=== PATIENT | female | born 1990 ===

== ENCOUNTER 2019-10-15 01:25 | Inpatient (IN) | payer SELFPAY ==
[2019-10-15] MEDS ORDERED: METHYLERGONOVINE 0.2MG/ML AMP IM PRN (04:10)
[2019-10-15] MEDS ORDERED: BUTORPHANOL 1 MG/ML INJ IV PRN (04:10)
[2019-10-15] MEDS ORDERED: Ringers Lactate 1,000 ML IV PRN (04:10)
[2019-10-15] MEDS ORDERED: CARBOPROST TROME 250 MCG/ML IM PRN (04:10)
[2019-10-15] MEDS ORDERED: PROMETHAZINE INJ 25 MG/ML AMP IM PRN (04:10)
[2019-10-15 04:42] LABS: Absolute Lymphocytes (CBC) 2.6 K/uL (0.7-4.9); Basophils % 0.1 % (0-1.3); Hematocrit 35.9 % (36.0-45.0); MPV 9.4 fL (7.6-11.3); RBC Red Blood Cell Count 4.13 M/uL (3.86-4.86)
[2019-10-15 04:43] LABS: Urine Appearance CLOUDY; Urine Bilirubin NEGATIVE (NEG); Urine Blood NEGATIVE (NEG); Urine Color YELLOW; Urine Glucose NEGATIVE (NEG); Urine Protein NEGATIVE (NEG); Urine Urobilinogen 0.2 mg/dL (0.2-1.0)
[2019-10-15] MEDS ORDERED: Ringers Lactate 1,000 ML IV SCH (05:00)
[2019-10-15] MEDS ORDERED: OXYTOCIN/LR 20 UNIT/1,000 ML BAG IV SCH ×2 (05:00→13:00)
[2019-10-15 05:03] LABS: Urine Microscopic Reflex ORDER UMIC
[2019-10-15 05:13] VITALS: BMI 27.8
[2019-10-15 05:50] LABS: Urine Bacteria 20-50 /HPF (<20); Urine Culture Reflex Order REFLEXED; Urine RBC NONE SEEN /HPF (NONE SEEN); Urine Urothelial Cells <5 /HPF (NONE SEEN)
[2019-10-15] MEDS ORDERED: ROPIVACAINE HCL 100 ML IV PRN (08:36)
[2019-10-15] MEDS ORDERED: FENTANYL CITR 100 MCG/2 ML IV ONE (08:36)
[2019-10-15] MEDS ORDERED: ROPIVACAINE HCL 0.2% 20ML AMP IV ONE (08:36)
[2019-10-15] MEDS ORDERED: LIDOCAINE 1% MPF 30 ML VIAL ONE (09:14)
--- NOTE | 2019-10-15 09:58 | PREOPHP ---
Date of Admission: 10/15/2019 A 28-year-old, 4, para 3, 39 weeks 1 day, followed antepartum without complications. Rh posi tive. Immune to rubella. Negative beta strep screen. Ancelmo regularly. Baby looks good on th e monitor. Good variability. She is 3.5 cm, -1 station. Rupture of membranes, clear fluid. Labor talk given. The patient will probably be requesting epidural when she achieves 4 cm and the baby is lower. We will call Anesthesia at that point. Labor talk given. Anticipate delivery sometime later today. FRANCIS/TELMA Voice ID: [id number]
[2019-10-15] MEDS ORDERED: ACETAMINOPHEN 500 MG TAB PO PRN (12:32)
[2019-10-15] MEDS ORDERED: Oxycodone HCl/Acetaminophen 1 TAB TAB PO PRN ×2 (12:32)
[2019-10-15] MEDS ORDERED: DOCUSATE NA/SENNA CONC 1 TAB PO PRN (12:32)
[2019-10-15] MEDS ORDERED: DIPHENHYDRAMINE 25 MG TAB/CAP PO PRN (12:32)
[2019-10-15] MEDS ORDERED: BISACODYL 10 MG RECTAL SUPP PR PRN (12:32)
[2019-10-15] MEDS ORDERED: miSOPROStoL 100 MCG TAB PO ONE (12:45)
[2019-10-15] MEDS: METHYLERGONOVINE 0.2 MG TAB PO PRN ×3 (13:39→21:45)
[2019-10-15] MEDS: IBUPROFEN 200 MG TAB PO PRN (21:45)
--- NOTE | 2019-10-15 23:46 | OP ---
Surgeon: Gilberto Rainey MD This is a 28-year-old, 4, para 3, at 39 weeks 1 day, 2.5 to 3 cm on admission. Rupture of me mbranes, clear fluid. The patient went into an active labor pattern, requested to receive epidural a nesthesia. Second stage of approximately 10 to 15 minutes. Spontaneous vaginal delivery of a 6 poun ds, 11 ounce male . Loose nuchal or more like shoulder harness cord. Apgars 9 and 9. No epis iotomy. No laceration. Schultze delivery of the placenta, which was inspected and noted to be intac t and normal. Mild uterine hypertonus. 350-400 cc blood loss. 0.2 mg of Methergine IM. The patien t tolerated all procedures well. She is Rh positive, immune to Rubella. Negative beta strep screen. Final Diagnoses: Term intrauterine 39 weeks 1 day, labor induction, vaginal delivery, epid ural anesthesia, mild uterine hypertonus. RUFINAC/MODL Voice ID: [id number] Report ID: [id number]
[2019-10-16] MEDS: METHYLERGONOVINE 0.2 MG TAB PO PRN (01:45)
[2019-10-16 01:52] LABS: RPR (Rapid Plasma Reagin) NON-REACT (NON-REACT)
[2019-10-16] MEDS: IBUPROFEN 200 MG TAB PO PRN ×2 (04:20→14:00)
--- NOTE | 2019-10-16 07:57 | DS ---
A 28-year-old female, 4, para 3, followed antepartum without complications, 39 weeks 1 day at the time of delivery. Delivered a 6 pounds 11 ounces male infant, Apgars 9 and 9. Epidural anesthe camilo. No episiotomy. No lacerations worthy of suturing. Schultze delivery of the placenta, which wa s inspected and noted to be intact and normal. Mild uterine hypotonus, 0.2 mg of Methergine as well as IV drip Pitocin, massage, and 100 mcg of Cytotec. Estimated blood loss at time of delivery, appro ximately 400 cc. ; afebrile, ambulating and voiding. Lochia is normal. No post epidural problems. Will be dismissed after baby is evaluated by dictaphone transcriber. No complaints or problems. Wi ll see me in 6 weeks for followup. Final Diagnoses: Term intrauterine , 39 weeks 1 day, vaginal delivery, epidural anesthesia. Mild uterine hypotonus. Loose nuchal cord. FRANCIS/ANIKETL Voice ID: [id number] Report ID: [id number]
[2019-10-16] MEDS ORDERED: IBUPROFEN 600 MG TAB ONE (14:01)
[2019-10-16 14:14] VITALS: BP 106/59; TEMP 97.3
[2019-10-18 04:20] LABS: HBsAG Nonreactive (Nonreactive)
== END 2019-10-16 15:35 | disposition home or self-care (01) | DRG 807 ==
LOC: 2ND-WC 04:03
PROVIDERS: ADMIT Specialist; ATTEND Specialist
PROC: 10E0XZZ Delivery of Products of Conception, External Approach (ICD-10-PCS; principal; 2019-10-15)
PROC: 10907ZC Drainage of Amniotic Fluid, Therapeutic from Products of Conception, Via Natural or Artificial Opening (ICD-10-PCS; 2019-10-15)
PROC: 3E0P7VZ Introduction of Hormone into Female Reproductive, Via Natural or Artificial Opening (ICD-10-PCS; 2019-10-15)
DX: O62.2 Other uterine inertia (principal); Z37.0 Single live birth; Z3A.39 39 weeks gestation of pregnancy; Z11.59 Encounter for screening for other viral diseases
CPT/HCPCS: 36415; 81003; 81015; 85025; 86592; 87086; 87088; 87340; J2210; J2590; J2795; J3010; J7120; U0002